=== PATIENT | female | born 1955 ===

== ENCOUNTER 2023-11-21 14:25 | Inpatient (IN) ==
[2023-11-21] MEDS: LACTATED RINGERS SEPSIS IV ONE (15:02)
[2023-11-21] MEDS ORDERED: Acetaminophen IV 1 GM/100ML 1,000 MG/100 ML BAG IV ONE (15:24)
[2023-11-21 15:26] LABS: Activated Partial Thrombo Time 33.7 seconds (26.0-38.0); INR 1.96 (0.83-1.13)
[2023-11-21] MEDS: cefTRIAXone 1 gm/50 mL D5W 1 GM/50 ML BAG IV ONE (15:27)
[2023-11-21] MEDS: Acetaminophen IV 1 GM/100ML 1,000 MG/100 ML BAG IV ONE (15:40)
[2023-11-21 15:41] LABS: ABS Basophils 0.1 10^3/uL (0.0-0.1); ABS Lymphocytes 1.8 10^3/uL (1.0-4.8); ABS Monocytes 0.6 10^3/uL (0.0-0.9); ABS Neutrophils 7.6 10^3/uL (1.5-7.6); ABS Nucleated RBC 0.01 10^3/ul; Eosinophil % 0.1 %; Hematocrit 39.5 % (35-45); Hemoglobin 13.4 g/dL (11.5-14.3); Lymphocyte % 17.6 %; Mean Corpuscular Hgb Conc 33.8 g/dL (31-36); Mean Corpuscular Volume 88.7 fL (80-97); Mean Platelet Volume 8.1 fL (7.5-11.2); Platelet Count 216 10^3/uL (150-450); Red Blood Count 4.46 10^6/uL (3.63-4.92); Red Cell Distribution Width 14.6 % (12-17); White Blood Count 10.1 10^3/uL (3.8-11.8)
[2023-11-21 16:14] LABS: Albumin 3.5 g/dL (3.2-5.2); Albumin/Globulin Ratio 1.4 (1-3); C Reactive Protein 128.17 mg/L (<8.01); Calcium 8.3 mg/dL (8.6-10.3); Creatinine, Serum 1.18 mg/dL (0.51-0.95); Globulin 2.5 g/dL (2-4); Potassium 3.4 mmol/L (3.5-5.0); Total Bilirubin 1.1 mg/dL (0.2-1.0); eGFR CKD-EPI 50.9 (>60)
[2023-11-21 16:35] LABS: High Sensitivity Troponin 1 Hr 11 pg/mL (<15)
[2023-11-21] MEDS: Iodixanol (CONTRAST) 320 MG/ML 100 ML SDV IV ONE (17:36)
[2023-11-21] MEDS: Digoxin IV 0.5 MG/2 ML AMP (0.25 MG/ML) IV SLOW PU ONE (17:43)
[2023-11-21] MEDS: Piperacillin/Tazobac 3.375 BAG 3.375 GM/100 ML BAG IV ONE (18:09)
[2023-11-21] MEDS ORDERED: Albuterol HFA INHALER 8 gm MDI INH PRN (18:57)
[2023-11-21] MEDS ORDERED: Zosyn per Pharmacy NOTE FOLLOW UP SCH (19:00)
[2023-11-21] MEDS: Metoprolol Tartrate 5 mg VIAL 5 ml VIAL (1 mg/ml) IV PRN (19:01)
[2023-11-21] MEDS: Metoprolol Tartrate 5 mg VIAL 5 ml VIAL (1 mg/ml) IV ONE (19:03)
[2023-11-21] MEDS: Enoxaparin 100 MG/ML SYR SUBCUT SCH (19:12)
[2023-11-21 19:31] LABS: Magnesium 1.8 mg/dL (1.9-2.7)
[2023-11-21 19:46] LABS: TSH Ultra Thyroid Stim Horm 0.34 mcIU/mL (0.34-5.60)
[2023-11-21] MEDS: Magnesium Sulfate IV 1GM/100ML 1 GM/100 ML BAG IV ONE (19:53)
[2023-11-21] MEDS: Potassium Chlor 20 meq TAB.ER PO ONE (19:54)
[2023-11-21] MEDS ORDERED: Potassium Chlor 20 meq TAB.ER PO SCH (20:00)
[2023-11-21] MEDS ORDERED: oxyCODONE SR 15 mg TAB PO PRN (20:31)
[2023-11-21] MEDS: KCL 20 MEQ/100 ML IVPREMIX 20 MEQ/100 ML BAG IV SCH (21:15)
[2023-11-21] MEDS: oxyCODONE SR 10 mg TAB PO PRN (21:15)
[2023-11-21] MEDS ORDERED: ZOSYN 3.375 GM Q8H per EXTENDED INFUSION IV SCH (22:00)
[2023-11-21] MEDS: ZOSYN 3.375 GM Q8H per EXTENDED INFUSION IV SCH (23:18)
[2023-11-22] MEDS: Metoprolol Tartrate 5 mg VIAL 5 ml VIAL (1 mg/ml) IV ONE (00:29)
[2023-11-22] MEDS: Acetaminophen IV 1 GM/100ML 1,000 MG/100 ML BAG IV PRN (02:11)
[2023-11-22 06:17] LABS: ABS Lymphocytes 1.2 10^3/uL (1.0-4.8); ABS Monocytes 0.2 10^3/uL (0.0-0.9); Eosinophil % 0.1 %; Hemoglobin 12.2 g/dL (11.5-14.3); Lymphocyte % 18.9 %; Mean Corpuscular Hemoglobin 31.3 pg (27-33); Mean Corpuscular Hgb Conc 34.8 g/dL (31-36); Mean Corpuscular Volume 89.8 fL (80-97); Mean Platelet Volume 8.2 fL (7.5-11.2); Platelet Count 146 10^3/uL (150-450); Red Blood Count 3.89 10^6/uL (3.63-4.92); Red Cell Distribution Width 14.5 % (12-17); White Blood Count 6.6 10^3/uL (3.8-11.8)
[2023-11-22 06:41] LABS: Calcium 7.7 mg/dL (8.6-10.3); Creatinine, Serum 1.15 mg/dL (0.51-0.95); Potassium 3.8 mmol/L (3.5-5.0); eGFR CKD-EPI 52.5 (>60)
[2023-11-22] MEDS ORDERED: Warfarin per PHARMACY **NOTE FOLLOW UP SCH (08:00)
[2023-11-22] MEDS: Aspirin EC 81 mg TAB.EC (enteric coated) PO SCH (08:14)
[2023-11-22 11:42] LABS: Urine Appearance Clear; Urine Bilirubin Negative (Negative); Urine Blood Trace (Negative); Urine Color Yellow; Urine Glucose Negative (Negative); Urine Ketones Negative (Negative); Urine Nitrite Negative (Negative); Urine Protein 1+ (>=30 mg/dL) (Negative); Urine Specific Gravity 1.027 (1.002-1.030); Urine Urobilinogen Negative (Negative)
[2023-11-22 11:49] LABS: Urine Bacteria 1+ /HPF (Absent); Urine Red Blood Cell 1+(3-5/hpf) /HPF (0-Trace); Urine Squamous Epithelial Cell Present /HPF (Absent); Urine White Blood Cell Trace(0-5/hpf) /HPF (0-Trace)
[2023-11-22] MEDS: Digoxin IV 0.5 MG/2 ML AMP (0.25 MG/ML) IV SLOW PU ONE (13:25)
[2023-11-22] MEDS: Metoprolol Tartrate 5 mg VIAL 5 ml VIAL (1 mg/ml) IV PRN (15:29)
[2023-11-22] MEDS: Warfarin DAILY REMINDER **NOTE FOLLOW UP SCH (17:15)
[2023-11-22] MEDS: oxyCODONE SR 10 mg TAB PO SCH (17:34)
[2023-11-23] MEDS ORDERED: Polyethylene Glycol 3350 17 GM PACKET PO PRN (01:32)
[2023-11-23 05:58] LABS: Hematocrit 33.4 % (35-45); Hemoglobin 11.5 g/dL (11.5-14.3); Mean Corpuscular Hemoglobin 31.1 pg (27-33); Mean Corpuscular Hgb Conc 34.6 g/dL (31-36); Mean Corpuscular Volume 90.1 fL (80-97); Mean Platelet Volume 8.7 fL (7.5-11.2); Platelet Count 123 10^3/uL (150-450); Red Blood Count 3.71 10^6/uL (3.63-4.92); Red Cell Distribution Width 14.6 % (12-17); White Blood Count 4.3 10^3/uL (3.8-11.8)
[2023-11-23 06:20] LABS: INR 1.8 (0.83-1.13)
[2023-11-23 06:37] LABS: Calcium 7.8 mg/dL (8.6-10.3); Creatinine, Serum 1.09 mg/dL (0.51-0.95); Magnesium 2.1 mg/dL (1.9-2.7); Potassium 3.6 mmol/L (3.5-5.0)
[2023-11-23 08:00] LABS: ABS Eosinophils 0.1 10^3/uL (0.0-0.5); ABS Lymphocytes 2.4 10^3/uL (1.0-4.8); ABS Monocytes 0.5 10^3/uL (0.0-0.9); ABS Neutrophils 1.3 10^3/uL (1.5-7.6); ABS Nucleated RBC 0.01 10^3/ul; Eosinophil % 1.4 %; Lymphocyte % 55.3 %; Nucleated Red Blood Cells % 0.3 %/100WBC (0.0-0.8); RBC Morphology Normal (Normal)
[2023-11-23] MEDS ORDERED: Magnesium Hydroxide LIQ 30 ML UDC PO PRN (09:14)
[2023-11-23] MEDS ORDERED: Senna TAB 8.6 mg TAB PO PRN (09:14)
[2023-11-23] MEDS: Sulfur Hexaflouride MICROSPHR 25 MG VIAL IV ONE (14:43)
[2023-11-23] MEDS: Sulfur Hexaflouride MICROSPHR 25 MG VIAL ONE (16:19)
[2023-11-23] MEDS: Magnesium Hydroxide LIQ 30 ML UDC PO SCH (22:17)
[2023-11-24 08:48] LABS: Hematocrit 36.3 % (35-45); Hemoglobin 12.4 g/dL (11.5-14.3); Mean Corpuscular Hemoglobin 30.6 pg (27-33); Mean Corpuscular Hgb Conc 34.1 g/dL (31-36); Mean Corpuscular Volume 89.9 fL (80-97); Mean Platelet Volume 9.8 fL (7.5-11.2); Platelet Count 156 10^3/uL (150-450); Red Blood Count 4.04 10^6/uL (3.63-4.92); Red Cell Distribution Width 14.7 % (12-17); White Blood Count 5.6 10^3/uL (3.8-11.8)
[2023-11-24 09:05] LABS: INR 1.74 (0.83-1.13)
[2023-11-24 09:14] LABS: Calcium 8.3 mg/dL (8.6-10.3); Creatinine, Serum 0.95 mg/dL (0.51-0.95); Magnesium 1.9 mg/dL (1.9-2.7); eGFR CKD-EPI 66.1 (>60)
[2023-11-24 10:34] LABS: ABS Eosinophils 0.1 10^3/uL (0.0-0.5); ABS Lymphocytes 3.7 10^3/uL (1.0-4.8); ABS Monocytes 0.2 10^3/uL (0.0-0.9); ABS Neutrophils 1.6 10^3/uL (1.5-7.6); ABS Nucleated RBC 0.01 10^3/ul; Eosinophil % 2.3 %; Lymphocyte % 65.3 %; Nucleated Red Blood Cells % 0.1 %/100WBC (0.0-0.8)
[2023-11-24 13:48] VITALS: BP 104/73
[2023-11-24 15:20] LABS: IgG Immunoblot Negative (Negative); IgM Immunoblot Negative (Negative)
[2023-11-25 00:27] LABS: Anaplasma phagocytophilum Positive (Negative); B. miyamotoi PCR, B Negative (Negative); Babesia divergens/MO-1 Negative (Negative); Babesia ducani Negative (Negative); Ehrlichia chaffeensis Negative (Negative); Ehrlichia ewingii/canis Negative (Negative); Ehrlichia muris eauclairensis Negative (Negative)
== END 2023-11-24 14:30 | disposition home or self-care (01) | DRG 884 ==
LOC: ED 14:25 → SUATTDRO 18:33 → INTOOBSV 18:33 → EDHOLD 18:33 → MEDTELE 20:30
PROVIDERS: ADMIT Internal Medicine Critical Care Medicine; ATTEND Student in an Organized Health Care Education/Training Program

== ENCOUNTER 2024-06-04 14:27 | Inpatient (IN) ==
[2024-06-04 15:09] LABS: ABS Basophils 0.1 10^3/uL (0.0-0.1); ABS Eosinophils 0.2 10^3/uL (0.0-0.5); ABS Lymphocytes 2.5 10^3/uL (1.0-4.8); ABS Monocytes 1.2 10^3/uL (0.0-0.9); ABS Neutrophils 7.6 10^3/uL (1.5-7.6); ABS Nucleated RBC 0.01 10^3/ul; Eosinophil % 1.5 %; Hematocrit 38.6 % (35-45); Hemoglobin 12.9 g/dL (11.5-14.3); Lymphocyte % 21.9 %; Mean Corpuscular Hemoglobin 29.7 pg (27-33); Mean Corpuscular Hgb Conc 33.4 g/dL (31-36); Mean Corpuscular Volume 88.8 fL (80-97); Mean Platelet Volume 8.7 fL (7.5-11.2); Nucleated Red Blood Cells % 0.1 %/100WBC (0.0-0.8); Platelet Count 215 10^3/uL (150-450); Red Blood Count 4.34 10^6/uL (3.63-4.92); Red Cell Distribution Width 15.9 % (12-17); White Blood Count 11.5 10^3/uL (3.8-11.8)
[2024-06-04 15:19] LABS: INR 2.03 (0.85-1.14)
[2024-06-04 15:46] LABS: High Sens Troponin Baseline 493 pg/mL (<15)
[2024-06-04 16:15] LABS: ALT 191 U/L (7-52); AST 99 U/L (13-39); Albumin 3.9 g/dL (3.5-5.7); Albumin/Globulin Ratio 1.8 (1-3); Alkaline Phosphatase 128 U/L (35-149); Anion Gap 6 mmol/L (2-16); Blood Urea Nitrogen 13 mg/dL (6-24); CO2 Carbon Dioxide 30 mmol/L (22-32); Calcium 8.9 mg/dL (8.6-10.3); Chloride 105 mmol/L (101-111); Creatinine, Serum 1.07 mg/dL (0.51-0.95); Globulin 2.2 g/dL (2-4); Glucose 86 mg/dL (70-100); Sodium 141 mmol/L (135-145); Total Bilirubin 1.6 mg/dL (0.2-1.0); Total Protein 6.1 g/dL (6.4-8.9); eGFR CKD-EPI 57.3 (>60)
[2024-06-04 18:14] LABS: High Sensitivity Troponin 1 Hr 462 pg/mL (<15)
[2024-06-04] MEDS: Iodixanol 320 (CONTRAST) 100 ML SDV IV ONE (19:00)
[2024-06-04 19:30] LABS: Lipase < 10 U/L (11.0-82.0)
[2024-06-04] MEDS: oxyCODONE SR 15 mg TAB PO ONE (20:03)
[2024-06-04] MEDS: Piperacillin/Tazobac 3.375 BAG 3.375 GM/100 ML BAG IV ONE (21:02)
[2024-06-04] MEDS: Heparin 5000 UNITS/ML 1 mL VIAL IV SCH (21:20)
[2024-06-04] MEDS: Heparin DRIP 25,000 UNITS BAG 25,000 UNITS/250 ML BAG IV SCH (21:21)
[2024-06-04 21:32] LABS: Urine Appearance Clear; Urine Bilirubin Negative (Negative); Urine Blood Negative (Negative); Urine Color Light-Yellow; Urine Glucose Negative (Negative); Urine Ketones Negative (Negative); Urine Nitrite Negative (Negative); Urine Protein Negative (Negative); Urine Specific Gravity 1.028 (1.002-1.030); Urine Urobilinogen Negative (Negative); Urine pH 5.5 (5.0-8.0)
[2024-06-04 21:35] LABS: Urine Bacteria Absent /HPF (Absent); Urine Red Blood Cell Trace(0-2/hpf) /HPF (0-Trace); Urine Squamous Epithelial Cell Present /HPF (Absent); Urine White Blood Cell Trace(0-5/hpf) /HPF (0-Trace)
[2024-06-04 22:26] LABS: Magnesium 2.1 mg/dL (1.9-2.7)
[2024-06-04] MEDS ORDERED: Albuterol HFA INHALER 8 gm MDI INH PRN (22:49)
[2024-06-04] MEDS ORDERED: Sulfur Hexaflouride MICROSPHR 25 MG VIAL IV PRN (22:53)
[2024-06-04] MEDS ORDERED: Naloxone Nasal Spray 4 MG/0.1 ML NASAL.SPR INTRANASAL PRN (23:00)
[2024-06-04] MEDS ORDERED: Senna TAB 8.6 mg TAB PO PRN (23:11)
[2024-06-04] MEDS ORDERED: Lidocaine PATCH 5% PATCH PRN (23:19)
[2024-06-04] MEDS: Nicotine PATCH 14 MG/24 HR PATCH TRANSDERM SCH (23:28)
[2024-06-04] MEDS ORDERED: Zosyn per Pharmacy NOTE FOLLOW UP SCH (23:45)
[2024-06-05 00:01] LABS: TSH Ultra Thyroid Stim Horm 0.91 mcIU/mL (0.34-5.60)
[2024-06-05 00:12] LABS: Folate > 20.00 ng/mL (5.90-24.80)
[2024-06-05 00:13] LABS: Vitamin B12 723 pg/mL (180-914)
[2024-06-05] MEDS: ZOSYN 3.375 GM Q8H per EXTENDED INFUSION IV SCH ×3 (02:39→14:58)
[2024-06-05 03:19] LABS: ABS Eosinophils 0.3 10^3/uL (0.0-0.5); ABS Neutrophils 6.7 10^3/uL (1.5-7.6); ABS Nucleated RBC 0.01 10^3/ul; Eosinophil % 2.9 %; Hemoglobin 13.3 g/dL (11.5-14.3); Lymphocyte % 20.3 %; Mean Corpuscular Hemoglobin 30.8 pg (27-33); Mean Corpuscular Hgb Conc 33.2 g/dL (31-36); Mean Corpuscular Volume 92.7 fL (80-97); Mean Platelet Volume 8.3 fL (7.5-11.2); Nucleated Red Blood Cells % 0.1 %/100WBC (0.0-0.8); Platelet Count 169 10^3/uL (150-450); Red Blood Count 4.31 10^6/uL (3.63-4.92); Red Cell Distribution Width 16.5 % (12-17); White Blood Count 10.1 10^3/uL (3.8-11.8)
[2024-06-05 04:25] LABS: Calcium 8.3 mg/dL (8.6-10.3); Creatinine, Serum 1.05 mg/dL (0.51-0.95); Magnesium 1.9 mg/dL (1.9-2.7); Potassium 3.5 mmol/L (3.5-5.0); eGFR CKD-EPI 58.6 (>60)
[2024-06-05] MEDS: Potassium Chlor 20 meq TAB.ER PO ONE (04:47)
[2024-06-05] MEDS: Metoprolol Tartrate 5 mg VIAL 5 ml VIAL (1 mg/ml) IV PRN ×2 (06:10→06:32)
[2024-06-05] MEDS: Morphine 2 MG/ML SYRINGE IV PRN (06:13)
[2024-06-05] MEDS: Metoprolol Tartrate 5 mg VIAL 5 ml VIAL (1 mg/ml) IV ONE (06:47)
[2024-06-05] MEDS: Lactated Ringers 1000 ml BAG 500 ML IV ONE (09:35)
[2024-06-05] MEDS: Aspirin EC 81 mg TAB.EC (enteric coated) PO SCH (10:25)
[2024-06-05] MEDS: Cholecalciferol (VIT D3) 1,000 unit TAB PO SCH (10:26)
[2024-06-05] MEDS: Amiodarone 400 mg TAB PO SCH (13:56)
[2024-06-05] MEDS: Lidocaine PATCH 5% PATCH TRANSDERM SCH (16:37)
[2024-06-05] MEDS ORDERED: DILTIAZEM IV PUSH SCH (18:00)
[2024-06-06 06:36] LABS: ABS Eosinophils 0.3 10^3/uL (0.0-0.5); ABS Lymphocytes 2.1 10^3/uL (1.0-4.8); ABS Monocytes 1.1 10^3/uL (0.0-0.9); ABS Neutrophils 9.8 10^3/uL (1.5-7.6); ABS Nucleated RBC 0.01 10^3/ul; Eosinophil % 2.1 %; Hematocrit 37.1 % (35-45); Hemoglobin 12.5 g/dL (11.5-14.3); Lymphocyte % 15.8 %; Mean Corpuscular Hemoglobin 29.7 pg (27-33); Mean Corpuscular Hgb Conc 33.7 g/dL (31-36); Mean Corpuscular Volume 88.1 fL (80-97); Mean Platelet Volume 8.7 fL (7.5-11.2); Platelet Count 216 10^3/uL (150-450); Red Blood Count 4.21 10^6/uL (3.63-4.92); White Blood Count 13.4 10^3/uL (3.8-11.8)
[2024-06-06 06:37] LABS: INR 2.21 (0.85-1.14)
[2024-06-06 06:57] LABS: Calcium 8.2 mg/dL (8.6-10.3); Creatinine, Serum 1.06 mg/dL (0.51-0.95); Magnesium 1.8 mg/dL (1.9-2.7); Potassium 3.8 mmol/L (3.5-5.0); eGFR CKD-EPI 57.9 (>60)
[2024-06-06] MEDS ORDERED: Flumazenil 0.5 mg/5 ml 0.1 MG/ML 5 ml VIAL ONE (08:12)
[2024-06-06] MEDS ORDERED: fentaNYL 100 mcg/2 ml 50 MCG/ML VIAL ONE (08:12)
[2024-06-06] MEDS ORDERED: Naloxone 0.4 mg VIAL 0.4 mg/ml 1 ml VIAL ONE (08:12)
[2024-06-06] MEDS ORDERED: Midazolam 5 mg/5 ml VIAL 1 mg/ml 5 ml VIAL (5 mg) ONE (08:12)
[2024-06-06] MEDS: DILTIAZEM IV PUSH SCH (10:35)
[2024-06-06] MEDS ORDERED: Warfarin per PHARMACY **NOTE FOLLOW UP SCH (16:00)
[2024-06-06] MEDS: Warfarin DAILY REMINDER **NOTE FOLLOW UP SCH (16:11)
[2024-06-06] MEDS: Furosemide 40 mg/4 ml IV VIAL IV SCH (16:34)
[2024-06-07 06:11] LABS: ABS Basophils 0.1 10^3/uL (0.0-0.1); ABS Eosinophils 0.2 10^3/uL (0.0-0.5); ABS Lymphocytes 2.4 10^3/uL (1.0-4.8); ABS Neutrophils 7.9 10^3/uL (1.5-7.6); Eosinophil % 2.1 %; Hematocrit 32.6 % (35-45); Hemoglobin 11.3 g/dL (11.5-14.3); Lymphocyte % 20.6 %; Mean Corpuscular Hemoglobin 30.5 pg (27-33); Mean Corpuscular Hgb Conc 34.6 g/dL (31-36); Mean Corpuscular Volume 88.2 fL (80-97); Mean Platelet Volume 8.2 fL (7.5-11.2); Platelet Count 212 10^3/uL (150-450); Red Blood Count 3.69 10^6/uL (3.63-4.92); Red Cell Distribution Width 15.8 % (12-17); White Blood Count 11.5 10^3/uL (3.8-11.8)
[2024-06-07 06:20] LABS: INR 3.26 (0.85-1.14)
[2024-06-07 06:53] LABS: Creatinine, Serum 1.34 mg/dL (0.51-0.95); Magnesium 1.9 mg/dL (1.9-2.7); Potassium 3.4 mmol/L (3.5-5.0); eGFR CKD-EPI 43.7 (>60)
[2024-06-07 10:36] LABS: C Reactive Protein 113.15 mg/L (<8.01)
[2024-06-07] MEDS: KCL 10 MEQ/50 ML IVPREMIX 10 MEQ/50 ML BAG IV SCH (11:33)
[2024-06-07] MEDS: Magnesium Sulfate 2 gm BAG 2 GM/50 ML BAG IVPB ONE (11:38)
[2024-06-07] MEDS: Potassium Chloride LIQUID 20 MEQ/15 ML LIQUID PO ONE (11:41)
[2024-06-08] MEDS ORDERED: Enoxaparin 100 MG/ML SYR SUBCUT ONE (04:00)
[2024-06-08 05:58] LABS: ABS Basophils 0.1 10^3/uL (0.0-0.1); ABS Eosinophils 0.3 10^3/uL (0.0-0.5); ABS Monocytes 0.6 10^3/uL (0.0-0.9); ABS Neutrophils 5.6 10^3/uL (1.5-7.6); Lymphocyte % 23.1 %; Mean Corpuscular Hemoglobin 31.3 pg (27-33); Mean Corpuscular Hgb Conc 35.3 g/dL (31-36); Mean Corpuscular Volume 88.6 fL (80-97); Mean Platelet Volume 8.2 fL (7.5-11.2); Platelet Count 242 10^3/uL (150-450); Red Blood Count 3.84 10^6/uL (3.63-4.92); Red Cell Distribution Width 15.9 % (12-17); White Blood Count 8.5 10^3/uL (3.8-11.8)
[2024-06-08 06:08] LABS: INR 3.69 (0.85-1.14)
[2024-06-08 06:41] LABS: Creatinine, Serum 1.35 mg/dL (0.51-0.95); Magnesium 2.1 mg/dL (1.9-2.7); Potassium 3.7 mmol/L (3.5-5.0); eGFR CKD-EPI 43.3 (>60)
[2024-06-08] MEDS ORDERED: Morphine 2 MG/ML SYRINGE IV PRN (07:43)
[2024-06-08] MEDS: Potassium Chlor 20 meq TAB.ER PO SCH (10:56)
[2024-06-08] MEDS: oxyCODONE SR 10 mg TAB PO SCH (14:34)
[2024-06-08] MEDS: Warfarin - No Order Today **NOTE FOLLOW UP ONE (16:08)
[2024-06-09 06:12] LABS: ABS Basophils 0.1 10^3/uL (0.0-0.1); ABS Eosinophils 0.4 10^3/uL (0.0-0.5); ABS Lymphocytes 2.6 10^3/uL (1.0-4.8); ABS Monocytes 0.8 10^3/uL (0.0-0.9); ABS Neutrophils 6.6 10^3/uL (1.5-7.6); ABS Nucleated RBC 0.01 10^3/ul; Hematocrit 41.2 % (35-45); Hemoglobin 13.8 g/dL (11.5-14.3); Lymphocyte % 24.7 %; Mean Corpuscular Hemoglobin 29.8 pg (27-33); Mean Corpuscular Hgb Conc 33.5 g/dL (31-36); Mean Corpuscular Volume 88.9 fL (80-97); Mean Platelet Volume 8.1 fL (7.5-11.2); Nucleated Red Blood Cells % 0.1 %/100WBC (0.0-0.8); Platelet Count 313 10^3/uL (150-450); Red Blood Count 4.64 10^6/uL (3.63-4.92); Red Cell Distribution Width 15.6 % (12-17); White Blood Count 10.5 10^3/uL (3.8-11.8)
[2024-06-09 06:14] LABS: INR 2.44 (0.85-1.14)
[2024-06-09 06:46] LABS: Calcium 8.3 mg/dL (8.6-10.3); Creatinine, Serum 1.39 mg/dL (0.51-0.95); Magnesium 2.1 mg/dL (1.9-2.7); Phosphorus 4.1 mg/dL (2.5-5.0); eGFR CKD-EPI 41.9 (>60)
[2024-06-09] MEDS: Metoprolol Tartrate 5 mg VIAL 5 ml VIAL (1 mg/ml) IV PRN (10:25)
[2024-06-09] MEDS ORDERED: Polyethylene Glycol 3350 17 GM PACKET PO PRN (14:14)
[2024-06-09] MEDS: Senna TAB 8.6 mg TAB PO ONE (14:19)
[2024-06-10 06:22] LABS: INR 1.8 (0.85-1.14)
[2024-06-10 06:55] LABS: Calcium 8.3 mg/dL (8.6-10.3); Creatinine, Serum 1.34 mg/dL (0.51-0.95); Potassium 4.2 mmol/L (3.5-5.0); eGFR CKD-EPI 43.7 (>60)
[2024-06-10 09:37] VITALS: BP 102/63
[2024-06-10] MEDS: Amoxicillin/Clavul 875/125 TAB (Augmentin 875 tab) PO SCH (12:56)
== END 2024-06-10 13:44 | disposition home or self-care (01) | DRG 280 ==
LOC: EDACCT# → EDHOLD 14:27 → ED 14:27 → OBSVTOIN 21:55 → SUATTDRO 21:55 → INTOOBSV 21:55 → MED 06-05 00:19 → MEDTELE 06-05 23:17
PROVIDERS: ADMIT Internal Medicine; ATTEND Internal Medicine